=== PATIENT | male | born 1935 | race Caucasian/White ===

== ENCOUNTER 2016-02-09 11:28 | Inpatient (IN) | payer MEDICARE, BC ==
[~2016-02-09 11:28] MED LIST: TYLENOL 325MG325 MG PO
[2016-02-09 13:00] VITALS: BP 112/71
[2016-02-09 14:07] VITALS: BP 112/71
[2016-02-09] MEDS ORDERED: OMEPRAZOLE40 MG PO (14:29)
[2016-02-09 19:17] VITALS: BP 105/63
[2016-02-10 06:50] VITALS: BP 138/89
[2016-02-10 18:19] VITALS: BP 121/73
[2016-02-11 06:30] VITALS: BP 152/84
[2016-02-11 18:45] VITALS: BP 126/79
[2016-02-12 06:31] VITALS: BP 144/93
[2016-02-12 18:47] VITALS: BP 113/72
[2016-02-13 06:27] VITALS: BP 150/81
[2016-02-13 18:21] VITALS: BP 112/62
[2016-02-14 06:34] VITALS: BP 152/81
[2016-02-14 18:33] VITALS: BP 126/73
[2016-02-15 07:00] VITALS: BP 125/81
[2016-02-15 19:19] VITALS: BP 144/73
[2016-02-16 06:47] VITALS: BP 137/82
[2016-02-16 18:45] VITALS: BP 127/68
[2016-02-17 06:49] VITALS: BP 153/89
[2016-02-17 18:40] VITALS: BP 131/88
[2016-02-18 06:25] VITALS: BP 134/96
[2016-02-18 18:39] VITALS: BP 115/66
[2016-02-19 06:28] VITALS: BP 130/100
[2016-02-19 08:00] VITALS: BP 147/94
[2016-02-19 18:49] VITALS: BP 135/88
[2016-02-20 07:06] VITALS: BP 153/88
[2016-02-20 18:00] VITALS: BP 141/90
[2016-02-21 06:37] VITALS: BP 131/82
[2016-02-21 18:36] VITALS: BP 103/63
[2016-02-22 06:20] VITALS: BP 151/99
[2016-02-22 11:45] VITALS: BP 134/80
[2016-02-22 18:35] VITALS: BP 106/65
[2016-02-23 02:28] VITALS: BP 137/92
[2016-02-23 06:50] VITALS: BP 110/65
[2016-02-23 18:20] VITALS: BP 120/68
[2016-02-24 06:41] VITALS: BP 130/83
[2016-02-24 18:22] VITALS: BP 118/69
[2016-02-25 06:21] VITALS: BP 155/83
[2016-02-25 18:31] VITALS: BP 115/75
[2016-02-26 06:26] VITALS: BP 140/81
[2016-02-26 18:18] VITALS: BP 137/88
[2016-02-27 06:31] VITALS: BP 135/75
[2016-02-27 19:11] VITALS: BP 121/75
[2016-02-28 06:55] VITALS: BP 152/80
[2016-02-28 18:31] VITALS: BP 105/70
[2016-02-29 06:13] VITALS: BP 163/83
[2016-02-29 18:18] VITALS: BP 114/67
[2016-03-01 06:43] VITALS: BP 138/80
[2016-03-01 18:18] VITALS: BP 109/64
[2016-03-02 06:40] VITALS: BP 141/83
[2016-03-02 18:33] VITALS: BP 108/67
[2016-03-03 06:42] VITALS: BP 138/84
[2016-03-03 18:29] VITALS: BP 113/75
[2016-03-04 06:27] VITALS: BP 144/81
[2016-03-04 18:16] VITALS: BP 105/64
[2016-03-05 06:39] VITALS: BP 135/63
[2016-03-05 18:13] VITALS: BP 106/69
[2016-03-06 06:22] VITALS: BP 158/89
[2016-03-06 18:42] VITALS: BP 122/76
[2016-03-07 06:29] VITALS: BP 167/94
[2016-03-07 18:28] VITALS: BP 125/73
[2016-03-07 22:26] VITALS: BP 137/79
[2016-03-08 06:35] VITALS: BP 135/82
[2016-03-08 18:40] VITALS: BP 115/67
[2016-03-09 06:26] VITALS: BP 148/88
[2016-03-09 19:00] VITALS: BP 125/66
[2016-03-10 06:40] VITALS: BP 145/82
[2016-03-10 18:40] VITALS: BP 111/74
[2016-03-11 06:31] VITALS: BP 131/79
[2016-03-11 19:35] VITALS: BP 108/62
[2016-03-12 06:23] VITALS: BP 159/93
[2016-03-12 18:16] VITALS: BP 115/68
[2016-03-13 06:18] VITALS: BP 129/77
[2016-03-13 18:24] VITALS: BP 111/67
[2016-03-14 06:16] VITALS: BP 153/88
[2016-03-14 18:34] VITALS: BP 124/75
[2016-03-15 06:20] VITALS: BP 146/101
[2016-03-15 09:09] VITALS: BP 142/84
[2016-03-15 18:45] VITALS: BP 122/75
[2016-03-16 06:20] VITALS: BP 145/82
[2016-03-16 18:30] VITALS: BP 117/71
[2016-03-17 06:23] VITALS: BP 163/96
[2016-03-17 18:31] VITALS: BP 109/62
[2016-03-18 06:57] VITALS: BP 154/86
[2016-03-18 18:58] VITALS: BP 111/63
[2016-03-19 06:18] VITALS: BP 139/75
[2016-03-19 18:16] VITALS: BP 119/68
[2016-03-20 06:19] VITALS: BP 168/84
[2016-03-20 18:33] VITALS: BP 132/63
[2016-03-21 06:20] VITALS: BP 147/94
[2016-03-21 18:30] VITALS: BP 115/71
[2016-03-22 06:23] VITALS: BP 156/87
[2016-03-22 18:55] VITALS: BP 137/70
[2016-03-23 06:20] VITALS: BP 160/84
[2016-03-23 18:43] VITALS: BP 125/68
[2016-03-24 06:19] VITALS: BP 149/82
[2016-03-24 18:11] VITALS: BP 132/79
[2016-03-25 06:24] VITALS: BP 170/85
[2016-03-25 18:23] VITALS: BP 114/70
[2016-03-26 06:19] VITALS: BP 142/88
[2016-03-26 18:17] VITALS: BP 123/67
[2016-03-27 06:27] VITALS: BP 132/90
[2016-03-27 18:05] VITALS: BP 127/70
[2016-03-28 06:20] VITALS: BP 155/79
[2016-03-28 18:01] VITALS: BP 127/66
[2016-03-29 06:21] VITALS: BP 157/94
[2016-03-29 18:47] VITALS: BP 114/70
[2016-03-30 06:33] VITALS: BP 153/89
[2016-03-30 18:28] VITALS: BP 116/72
[2016-03-31 06:22] VITALS: BP 169/93
[2016-03-31 16:06] VITALS: BP 124/79
[2016-04-01 06:20] VITALS: BP 151/89
[2016-04-01 18:49] VITALS: BP 105/56
[2016-04-02 06:27] VITALS: BP 140/84
[2016-04-02 18:00] VITALS: BP 108/68
[2016-04-03 05:51] VITALS: BP 137/71
[2016-04-03 18:25] VITALS: BP 119/70
[2016-04-04 18:17] VITALS: BP 117/62
[2016-04-05 06:25] VITALS: BP 154/75
[2016-04-05 18:15] VITALS: BP 114/62
[2016-04-06 06:21] VITALS: BP 157/92
[2016-04-06 18:38] VITALS: BP 126/77
[2016-04-07 06:47] VITALS: BP 142/75
[2016-04-07 18:25] VITALS: BP 128/73
[2016-04-08 06:26] VITALS: BP 135/81
[2016-04-08 08:56] VITALS: BP 130/76
[2016-04-08 18:40] VITALS: BP 116/59
[2016-04-09 06:18] VITALS: BP 121/64
[2016-04-09 18:24] VITALS: BP 115/72
[2016-04-10 06:31] VITALS: BP 161/85
[2016-04-10] MEDS ORDERED: MEGACE PO (07:49)
[2016-04-10] MEDS ORDERED: ATORVASTATIN CA40 MG PO (07:50)
[2016-04-10] MEDS ORDERED: CLOPIDOGREL PO (07:50)
[2016-04-10] MEDS ORDERED: PROCARDIA XL30 M1 PO (07:51)
[2016-04-10] MEDS ORDERED: TYLENOL 325MG325 MG PO (07:52)
[2016-04-10] MEDS ORDERED: ESCITALOPRAM PO (07:53)
[2016-04-10] MEDS ORDERED: MIRTAZAPINE15 MG PO (07:53)
[2016-04-10] MEDS ORDERED: AMBIEN5 M1 PO (07:54)
[2016-04-10] MEDS ORDERED: BISACODYL RC (07:54)
[2016-04-10] MEDS ORDERED: PEG 335017 GM/Dose PO (07:55)
[2016-04-10] MEDS ORDERED: DOCUSATE SOD100 MG PO (07:55)
[2016-04-10] MEDS ORDERED: PANTOPRAZOLE SO40 MG PO (07:56)
[2016-04-10] MEDS ORDERED: RANITIDINE HCL150 MG PO (07:56)
[2016-04-10 09:55] VITALS: BP 161/85
[2016-04-10 10:34] VITALS: BP 161/85
== END 2016-04-10 09:48 | DRG 57 ==
LOC: MED/SURG 11:28
PROVIDERS: ADMIT Physician Assistant
DX: I69.351 Hemiplegia and hemiparesis following cerebral infarction affecting right dominant side (principal); E46 Unspecified protein-calorie malnutrition; Z68.1 Body mass index [BMI] 19.9 or less, adult; I69.391 Dysphagia following cerebral infarction; I69.392 Facial weakness following cerebral infarction; R13.10 Dysphagia, unspecified; I12.9 Hypertensive chronic kidney disease with stage 1 through stage 4 chronic kidney disease, or unspecified chronic kidney disease; N18.2 Chronic kidney disease, stage 2 (mild); M24.541 Contracture, right hand; E78.5 Hyperlipidemia, unspecified; F32.9 Major depressive disorder, single episode, unspecified; F51.05 Insomnia due to other mental disorder; F41.8 Other specified anxiety disorders; Z79.02 Long term (current) use of antithrombotics/antiplatelets
CPT/HCPCS: A4565; J1650

== ENCOUNTER → 2016-05-13 | Outpatient (CLI) | payer OTHER ==
[~2016-05-13] MED LIST changes: +AMBIEN5 M1 PO; +ARTIFICIAL TEAR1510 OP; +ATORVASTATIN CA40 MG PO; +BISACODYL RC; +CLOPIDOGREL PO; +DOCUSATE SOD100 MG PO; +ESCITALOPRAM PO; +FLUTICASON0.05 MG/AC NS; +GENTAMICIN EYE D5 ML OP; +GERI-LANTA 355355 ML PO; +GOOD NEIGH1200 MG/15 PO; +GOOD SENSE ANTI-IT1% TP; +LIPITOR 40MG TA40 MG PO; +MEGACE 40MG40 MG/TAB PO; +MEGACE PO; +MIRTAZAPINE15 MG PO; +OMEPRAZOLE40 MG PO; +PANTOPRAZOLE SO40 MG PO; +PEG 335017 GM/Dose PO; +PROCARDIA XL30 M1 PO; +PROZAC20 M1 PO; +RA COUGH-COLD237 ML PO; +RANITIDINE HCL150 MG PO
== END ==
LOC: LAB 15:20
DX: R73.02 Impaired glucose tolerance (oral) (principal); N18.2 Chronic kidney disease, stage 2 (mild); Z12.5 Encounter for screening for malignant neoplasm of prostate; N52.03 Combined arterial insufficiency and corporo-venous occlusive erectile dysfunction

== ENCOUNTER → 2016-05-24 | Outpatient (CLI) | payer MEDICARE, BC | LOC: CARDREHAB 10:06 | DX: R06.00 Dyspnea, unspecified (principal); I63.332 Cerebral infarction due to thrombosis of left posterior cerebral artery; N18.2 Chronic kidney disease, stage 2 (mild); R73.02 Impaired glucose tolerance (oral) | CPT/HCPCS: A9500 ==

== ENCOUNTER 2016-10-24 10:46 | Emergency (ER) | payer MEDICARE, BC ==
[~2016-10-24] VITALS: Wt 61.5 kg
[~2016-10-24 10:46] MED LIST changes: -ARTIFICIAL TEAR1510 OP; -FLUTICASON0.05 MG/AC NS; -GENTAMICIN EYE D5 ML OP; -GERI-LANTA 355355 ML PO; -GOOD NEIGH1200 MG/15 PO; -GOOD SENSE ANTI-IT1% TP; -LIPITOR 40MG TA40 MG PO; -MEGACE 40MG40 MG/TAB PO; -PROZAC20 M1 PO; -RA COUGH-COLD237 ML PO
[2016-10-24 16:44] VITALS: BP 125/67
[2016-10-25] MEDS ORDERED: FLUTICASON0.05 MG/AC NS (01:28)
[2016-10-25] MEDS ORDERED: GENTAMICIN EYE D5 ML OP (01:33)
[2016-10-25] MEDS ORDERED: LIPITOR 40MG TA40 MG PO (01:35)
[2016-10-25] MEDS ORDERED: GERI-LANTA 355355 ML PO (01:35)
[2016-10-25] MEDS ORDERED: MEGACE 40MG40 MG/TAB PO (01:38)
[2016-10-25] MEDS ORDERED: GOOD NEIGH1200 MG/15 PO (01:39)
[2016-10-25] MEDS ORDERED: RA COUGH-COLD237 ML PO (01:42)
[2016-10-25] MEDS ORDERED: PROZAC20 M1 PO (01:43)
[2016-10-25] MEDS ORDERED: PROCARDIA XL30 M1 PO (01:43)
[2016-10-25] MEDS ORDERED: ARTIFICIAL TEAR1510 OP (01:47)
[2016-10-25] MEDS ORDERED: GOOD SENSE ANTI-IT1% TP (01:48)
== END 2016-10-24 16:46 | disposition other institution (70) ==
LOC: ED 10:46
DX: J18.9 Pneumonia, unspecified organism (principal); R10.31 Right lower quadrant pain; I12.9 Hypertensive chronic kidney disease with stage 1 through stage 4 chronic kidney disease, or unspecified chronic kidney disease; N18.9 Chronic kidney disease, unspecified; I69.959 Hemiplegia and hemiparesis following unspecified cerebrovascular disease affecting unspecified side; J43.9 Emphysema, unspecified; Z87.891 Personal history of nicotine dependence; Z79.02 Long term (current) use of antithrombotics/antiplatelets; R63.0 Anorexia; F32.9 Major depressive disorder, single episode, unspecified; K21.9 Gastro-esophageal reflux disease without esophagitis; E78.5 Hyperlipidemia, unspecified; G47.00 Insomnia, unspecified
CPT/HCPCS: A4351; A4354; J2270; J2405; J7030; Q9967

== ENCOUNTER 2016-10-24 16:23 | Inpatient (IN) | payer MEDICARE, BC ==
[~2016-10-24] VITALS: Ht 182.9 cm; Wt 61.0 kg
[2016-10-24 19:09] VITALS: BP 126/71
[2016-10-24 19:12] VITALS: BP 126/71
[2016-10-24 23:12] VITALS: BP 142/77
[2016-10-25] MEDS ORDERED: FLUTICASON0.05 MG/AC NS (01:28)
[2016-10-25] MEDS ORDERED: GENTAMICIN EYE D5 ML OP (01:33)
[2016-10-25] MEDS ORDERED: GERI-LANTA 355355 ML PO (01:35)
[2016-10-25] MEDS ORDERED: LIPITOR 40MG TA40 MG PO (01:35)
[2016-10-25] MEDS ORDERED: MEGACE 40MG40 MG/TAB PO (01:38)
[2016-10-25] MEDS ORDERED: GOOD NEIGH1200 MG/15 PO (01:39)
[2016-10-25] MEDS ORDERED: RA COUGH-COLD237 ML PO (01:42)
[2016-10-25] MEDS ORDERED: PROCARDIA XL30 M1 PO (01:43)
[2016-10-25] MEDS ORDERED: PROZAC20 M1 PO (01:43)
[2016-10-25] MEDS ORDERED: ARTIFICIAL TEAR1510 OP (01:47)
[2016-10-25] MEDS ORDERED: GOOD SENSE ANTI-IT1% TP (01:48)
[2016-10-25 03:33] VITALS: BP 147/88
[2016-10-25 06:55] VITALS: BP 140/87
[2016-10-25 11:19] VITALS: BP 127/75
[2016-10-25 15:18] VITALS: BP 120/69
[2016-10-25 18:25] VITALS: BP 111/48
[2016-10-25 23:09] VITALS: BP 116/57
[2016-10-26 02:58] VITALS: BP 116/58
[2016-10-26 06:29] VITALS: BP 135/72
[2016-10-26 11:17] VITALS: BP 108/49
[2016-10-26 14:48] VITALS: BP 124/65
[2016-10-26 18:46] VITALS: BP 117/61
[2016-10-26 22:56] VITALS: BP 133/76
[2016-10-27 03:40] VITALS: BP 138/77
[2016-10-27 06:41] VITALS: BP 150/88
[2016-10-27 11:29] VITALS: BP 132/86
[2016-10-27 15:25] VITALS: BP 134/57
[2016-10-27 18:28] VITALS: BP 123/70
[2016-10-27 23:15] VITALS: BP 147/79
[2016-10-28 03:28] VITALS: BP 166/99
[2016-10-28 06:27] VITALS: BP 160/89
[2016-10-28 11:06] VITALS: BP 150/92
[2016-10-28 15:08] VITALS: BP 143/81
[2016-10-28 18:27] VITALS: BP 137/75
[2016-10-28 23:05] VITALS: BP 142/86
[2016-10-29 02:35] VITALS: BP 142/77
[2016-10-29 06:25] VITALS: BP 159/88
[2016-10-29 11:13] VITALS: BP 138/79
[2016-10-29 15:37] VITALS: BP 135/80
[2016-10-29 17:55] VITALS: BP 140/77
[2016-10-29 22:44] VITALS: BP 157/93
[2016-10-30 03:08] VITALS: BP 144/83
[2016-10-30 06:25] VITALS: BP 153/90
== END 2016-10-30 11:35 | disposition hospice, home (50) | DRG 195 ==
LOC: MED/SURG 16:23
PROVIDERS: ADMIT Physician Assistant
DX: J18.9 Pneumonia, unspecified organism (principal); R09.02 Hypoxemia; Z66 Do not resuscitate; Z51.5 Encounter for palliative care; R13.10 Dysphagia, unspecified; N18.2 Chronic kidney disease, stage 2 (mild); E87.6 Hypokalemia; Z86.73 Personal history of transient ischemic attack (TIA), and cerebral infarction without residual deficits
CPT/HCPCS: C9113; J0456; J0696; J1650; J2060; J2270; J3480; J3490; J7030; J7050